=== PATIENT | female | born 1990 | race Caucasian/White ===

== ENCOUNTER 2018-06-21 11:41 | Emergency (ER) | payer SELFPAY ==
[~2018-06-21] VITALS: Ht 165.1 cm; Wt 59.5 kg
[2018-06-21 12:30] VITALS: Ht 165.1 cm; Wt 59.5 kg
[2018-06-21 16:17] LABS: BASOPHIL % 0.2 % (0-2); PLATELET COUNT 326 x10^3mcL (130-400); RED CELL DISTRIBUTION WIDTH 12.7 % (11.5-14.5)
[2018-06-21 16:24] LABS: CALCIUM 8.9 mg/dL (8.5-10.1); CARBON DIOXIDE 25.9 mmol/L (21-32); CHLORIDE SERUM 102 mmol/L (98-107); CREATININE SERUM 0.7 mg/dL (0.6-1.0); GFR1 > 60 mL/min; GLUCOSE SERUM 87 mg/dL (74-106); POTASSIUM SERUM 3.7 mmol/L (3.5-5.1); SODIUM SERUM 135 mmol/L (136-145)
[2018-06-21 16:28] LABS: ALBUMIN 3.5 g/dL (3.4-5.0); ALKALINE PHOSPHATASE 47 U/L (46-116); ALT/SGPT 16 U/L (14-59); AST/SGOT 24 U/L (15-37); BILIRUBIN TOTAL 0.6 mg/dL (0.20-1.00); CHOLESTEROL 157 mg/dL (<200); HDL CHOLESTEROL 52 mg/dL (40-60); TOTAL PROTEIN, SERUM 8.2 g/dL (6.4-8.2)
[2018-06-21 16:37] LABS: FREE T4 1.16 ng/dL (0.76-1.46)
[2018-06-21 16:40] LABS: T3 TOTAL 1.44 ng/mL
[2018-06-21 16:42] LABS: FREE THYROXINE INDEX 4.1 ug/dL (1.4-4.5); T4(THYROXINE) 14.1 ug/dL (4.7-13.3)
[2018-06-21 18:10] VITALS: BP 118/71
== END 2018-06-21 18:10 | disposition home or self-care (01) ==
LOC: ED 11:41
PROVIDERS: Emergency Medicine
DX: R42 Dizziness and giddiness (principal); R51 Headache; J45.909 Unspecified asthma, uncomplicated
CPT/HCPCS: 36415; 84439; Q0092

== ENCOUNTER 2018-11-07 12:50 | Emergency (ER) | payer OTHER ==
[~2018-11-07] VITALS: Ht 165.1 cm; Wt 66.4 kg
[2018-11-07 12:56] VITALS: BP 135/87; Ht 165.1 cm; Wt 66.4 kg
== END 2018-11-07 14:27 | disposition home or self-care (01) ==
LOC: ED 12:50
DX: N39.0 Urinary tract infection, site not specified (principal); J45.909 Unspecified asthma, uncomplicated